=== PATIENT | male | born 1965 | race African-American/Black ===

== ENCOUNTER 2016-08-06 18:11 | Emergency (ER) | payer MEDICAID ==
[~2016-08-06] VITALS: Ht 172.7 cm; Wt 70.3 kg
[~2016-08-06 18:11] MED LIST: BACTRIM DS TAB1 EAC1 ORAL; BACTRIM-DS1 EA ORAL; BENADRYL25 MG ORAL; CIPRO500 MG PO; COLACE100 MG ORAL; FLAGYL250 MG ORAL; KEFLEX500 MG ORAL; METRONIDAZOLE500 MG ORAL; NITROFURANTOIN100 M2 ORAL; NKM; NORCO 10/3251 EA ORAL; NORCO 5-325 TA1 EACH ORAL; NORCO 5-325 TA1 EACH PO; PERCOCET 10-321 EAC1 PO; PYRIDIUM100 MG ORAL; SIMETHICONE80 MG ORAL; VICODIN 5-3001 EACH ORAL; VICODIN 5-5001 EACH PO
[2016-08-06] MEDS ORDERED: Ketorolac 30mg Inj IV ONE (19:00)
[2016-08-06] MEDS ORDERED: Morphine Sulfate 4mg/ml Inj IVP ONE (19:15)
[2016-08-06 19:16] LABS: BASOPHILS % (AUTO) 0.7 % (0.0-2.0); LYMPHOCYTES % (AUTO) 9.7 % (20.0-45.0); MEAN CORPUSCULAR HEMOGLOBIN 25.4 PG (27.0-31.0); MEAN CORPUSCULAR VOLUME 79 FL (80-99); MEAN PLATELET VOLUME 6.6 FL (6.5-10.1); MONOCYTES % (AUTO) 7.8 % (1.0-10.0); NEUTROPHILS % (AUTO) 81.8 % (45.0-75.0); PLATELET COUNT 210 K/UL (150-450); RED BLOOD COUNT 5.91 M/UL (4.70-6.10); RED CELL DISTRIBUTION WIDTH 20.2 % (11.6-14.8); WHITE BLOOD COUNT 10.1 K/UL (4.8-10.8)
[2016-08-06 19:19] VITALS: BP 128/87
--- NOTE | 2016-08-06 19:21 | Emergency Room Report ---
History of Present Illness General Chief Complaint: Abdominal Pain Source: Patient Present Illness HPI Patient is a 51-year-old male who presented after increased abdominal pain. Patient prior history of chronic pain as well as Crohn's disease. Patient prior history of a fistula as well as prior abdominal surgeries with the ileostomy. Patient reported having increased abdominal pain. The patient stated that he had been taking OxyContin. Patient denied any new skin lesions. He had been recently treated for a fungal infection to his of scrotal area. The patient has a fairly complicated medical history. Patient previously been seen at [facility] and had CT imaging done Allergies: Coded Allergies: RIVAROXABAN (Unverified Allergy, Unknown, 08/06/16) Patient History Past Medical History: see triage record Reviewed Nursing Documentation: PMH: Agreed, PSxH: Agreed Nursing Documentation-PMH Hx Hypertension: Yes Hx Asthma: Yes Hx Gastrointestinal Problems: Yes - GERD, DIVERTICULITIS, CROHN'S DISEASE Review of Systems All Other Systems: negative except mentioned in HPI Physical Exam Vital Signs Date Time Temp Pulse Resp B/P Pulse Ox O2 Delivery O2 Flow Rate FiO2 08/06/16 18:02 98.1 110 16 126/68 97 Room Air Sp02 EP Interpretation: reviewed, normal General Appearance: normal inspection, well appearing, no apparent distress, alert, GCS 15, non-toxic Head: atraumatic ENT: normal ENT inspection, hearing grossly normal, normal voice Neck: normal inspection, full range of motion, supple, no bony tend Respiratory: normal inspection, lungs clear, normal breath sounds, no respiratory distress, no retraction, no wheezing Cardiovascular #1: regular rate, rhythm, no edema Gastrointestinal: normal inspection, normal bowel sounds, non tender, soft, no guarding, no hernia Genitourinary: no CVA tenderness Musculoskeletal: normal inspection, back normal, normal range of motion Neurologic: normal inspection, alert, oriented x3, responsive, driver messenger III-XII nml as tested, motor strength/tone normal, speech normal Psychiatric: normal inspection, judgement/insight normal, mood/affect normal Skin: normal inspection, normal color, no rash Medical Decision Making Diagnostic Impression: Primary Impression: Urinary tract infection Additional Impressions: Chronic abdominal pain Colonic fistula ER Course Patient presented for abdominal pain. Differential diagnoses included ischemic bowel, appendicitis, perforated viscus, abdominal aortic aneurysm, inferior myocardial infarction, viral gastroenteritis Because of complexity of patient's case laboratory testing and imaging studies were ordered.the patient started on IV fluids.Patient was given antiemetics and steroids. The patient showed evidence of urinary tract infection and was started on IV antibiotics. The patient was given prescription for further antibiotics and pain medications. Patient was advised to followup with his own physicians for further refills of his pain medications. The patient was noted to have evidence of urinary tract infection was given prescription for antibiotics. Labs Test 08/06/16 18:58 White Blood Count 10.1 K/UL (4.8-10.8) Red Blood Count 5.91 M/UL (4.70-6.10) Hemoglobin 15.0 G/DL (14.2-18.0) Hematocrit 46.8 % (42.0-52.0) Mean Corpuscular Volume 79 FL (80-99) Mean Corpuscular Hemoglobin 25.4 PG (27.0-31.0) Mean Corpuscular Hemoglobin Concent 32.0 G/DL (32.0-36.0) Red Cell Distribution Width 20.2 % (11.6-14.8) Platelet Count 210 K/UL (150-450) Mean Platelet Volume 6.6 FL (6.5-10.1) Neutrophils (%) (Auto) 81.8 % (45.0-75.0) Lymphocytes (%) (Auto) 9.7 % (20.0-45.0) Monocytes (%) (Auto) 7.8 % (1.0-10.0) Eosinophils (%) (Auto) 0.0 % (0.0-3.0) Basophils (%) (Auto) 0.7 % (0.0-2.0) Erythrocyte Sedimentation Rate 2 MM/HR (0-15) Urine Color Yellow Urine Appearance Cloudy Urine pH 5 (4.5-8.0) Urine Specific [place] 1.020 (1.005-1.035) Urine Protein 1+ (NEGATIVE) Urine Glucose (UA) Negative (NEGATIVE) Urine Ketones Negative (NEGATIVE) Urine Occult Blood 5+ (NEGATIVE) Urine Nitrite Negative (NEGATIVE) Urine Bilirubin Negative (NEGATIVE) Urine Urobilinogen Normal MG/DL (0.0-1.0) Urine Leukocyte Esterase 3+ (NEGATIVE) Urine RBC 2-4 /HPF (0 - 0) Urine WBC Tntc /HPF (0 - 0) Urine Squamous Epithelial Cells Occasional /LPF Urine Bacteria Many /HPF (NONE) Sodium Level 136 mEQ/L (135-145) Potassium Level 4.1 mEQ/L (3.4-4.9) Chloride Level 95 mEQ/L (98-107) Carbon Dioxide Level 25 mEQ/L (20-30) Anion Gap 16 (5-15) Blood Urea Nitrogen 13 mg/dL (7-23) Creatinine 0.7 mg/dL (0.7-1.2) Estimat Glomerular Filtration Rate > 60 mL/min (>60) Glucose Level 152 mg/dL (74-106) Calcium Level 8.2 mg/dL (8.6-10.2) Total Bilirubin 0.3 mg/dL (0.0-1.2) Aspartate Amino Transf (AST/SGOT) 11 U/L (5-40) Alanine Aminotransferase (ALT/SGPT) 11 U/L (3-41) Alkaline Phosphatase 95 U/L (40-129) Troponin I < 0.30 ng/mL (<=0.30) Total Protein 5.6 g/dL (6.6-8.7) Albumin 2.6 g/dL (3.5-5.2) Globulin 3.0 g/dL Albumin/Globulin Ratio 0.8 (1.0-2.7) Lipase 14 U/L (< 60) Last Vital Signs Date Time Temp Pulse Resp B/P Pulse Ox O2 Delivery O2 Flow Rate FiO2 08/06/16 18:02 98.1 110 16 126/68 97 Room Air Status: improved Disposition: HOME, SELF-CARE Condition: Stable Scripts Cephalexin* (KEFLEX*) 500 Mg Capsule 500 MG ORAL Q6H, #28 CAP 0 Refills Prov: Miles Pfeiffer 08/06/16 Hydrocodone Bit/Acetaminophen 10-325* (NORCO 10-325*) 1 Each Tablet 1 TAB ORAL Q6H Y for For Pain, #10 TAB 0 Refills PRN PAIN Prov: Miles Pfeiffer 08/06/16 Referrals: NOT CHOSEN [facility]/,REFERRING (PCP) Miles Pfeiffer Aug 06, 2016 19:21
[2016-08-06 19:35] LABS: APPEARANCE,URINE CLOUDY; KETONES,URINE NEGATIVE (NEGATIVE); NITRITE,URINE NEGATIVE (NEGATIVE); PH,URINE 5 (4.5-8.0); PROTEIN,URINE 1+ (NEGATIVE); UROBILINOGEN,URINE NORMAL MG/DL (0.0-1.0)
[2016-08-06 19:36] LABS: LEUKOCYTE ESTERASE ,URINE 3+ (NEGATIVE)
[2016-08-06 19:45] LABS: TROPONIN I < 0.30 ng/mL (<=0.30)
[2016-08-06 19:49] LABS: ALANINE AMINOTRANSFERASE 11 U/L (3-41); ALBUMIN/GLOBULIN RATIO 0.8 (1.0-2.7); ANION GAP 16 (5-15); ASPARTATE AMINO TRANSFERASE 11 U/L (5-40); CALCIUM 8.2 mg/dL (8.6-10.2); CARBON DIOXIDE 25 mEQ/L (20-30); CHLORIDE 95 mEQ/L (98-107); CREATININE 0.7 mg/dL (0.7-1.2); GLOMERULAR FILTRATION RATE > 60 mL/min (>60); HEMOLYSIS 3; LIPASE 14 U/L (< 60); POTASSIUM 4.1 mEQ/L (3.4-4.9); SODIUM 136 mEQ/L (135-145); TOTAL PROTEIN 5.6 g/dL (6.6-8.7)
[2016-08-06 19:56] LABS: BACTERIA,URINE MANY /HPF; SQUAMOUS EPITHELIAL CELL,UR OCCASIONAL /LPF (NONE/OCC); WBC,URINE TNTC /HPF (0 - 0)
[2016-08-06] MEDS ORDERED: cefTRIAXone 1 GM in NS 55 ML IVPB ONE (20:00)
[2016-08-06] MEDS ORDERED: KEFLEX500 MG ORAL (20:17)
[2016-08-06] MEDS ORDERED: NORCO 10-325 T1 EACH ORAL (20:17)
[2016-08-06 20:44] VITALS: BP 109/79
--- NOTE | 2016-08-07 11:24 | Diagnostic Imaging Report ---
Clinical history: Abdominal pain. Technique: Single frontal abdominal radiograph was obtained. Comparisons: None Findings: Moderate retained stool is noted throughout the colon. Visualized bowel gas pattern is nonspecific, without evidence of obstruction. A retrievable type IVC filter is noted in the mid abdomen. IMPRESSION: Moderate retained colonic stool. Nonspecific, nonobstructive bowel gas pattern. Retrievable type IVC filter noted.
== END 2016-08-06 21:45 | disposition home or self-care (01) ==
LOC: EDBD 18:11 → EMR 19:11
DX: N39.0 Urinary tract infection, site not specified (principal); G89.29 Other chronic pain; K63.2 Fistula of intestine; I10 Essential (primary) hypertension; Z87.09 Personal history of other diseases of the respiratory system
CPT/HCPCS: 36415; 74020; 80053; 81003; 83690; 84484; 85025; 85651; 87086; 87181; 96361; 96374; 96375; 99284; J0696; J1885; J2270; J2405

== ENCOUNTER 2017-06-03 10:06 | Emergency (ER) | payer MEDICAID, OTHER ==
[~2017-06-03] VITALS: Ht 167.6 cm; Wt 72.6 kg
[~2017-06-03 10:06] MED LIST changes: +NORCO 10-325 T1 EACH ORAL
[2017-06-03] MEDS ORDERED: BUMEX1 MG ORAL (10:19)
[2017-06-03] MEDS ORDERED: TRAMADOL HCL100 M2 ORAL (10:19)
[2017-06-03] MEDS ORDERED: ZOFRAN4 M1 ORAL (10:19)
[2017-06-03] MEDS ORDERED: LIDOCAINE 4% (10:19)
[2017-06-03] MEDS ORDERED: DIPHENHYDRAMINE25 M1 ORAL (10:19)
[2017-06-03] MEDS ORDERED: LEXAPRO20 MG ORAL (10:19)
[2017-06-03] MEDS ORDERED: OXYCODONE HCL20 M1 ORAL (10:19)
[2017-06-03] MEDS ORDERED: MYTAB GAS80 MG PO (10:19)
[2017-06-03 10:22] VITALS: BP 126/84
[2017-06-03] MEDS ORDERED: LOPERAMIDE2 M1 PO (10:28)
[2017-06-03] MEDS ORDERED: HYOSCYAMINE0.125 M2 PO (10:28)
[2017-06-03] MEDS ORDERED: CREON DR 6,0001 EACH PO (10:28)
[2017-06-03] MEDS ORDERED: VITAMIN D22000 UNIT PO (10:28)
[2017-06-03] MEDS ORDERED: MELATONIN 1 MG1 EAC1 ORAL (10:28)
[2017-06-03] MEDS ORDERED: ELIQUIS5 MG PO (10:28)
[2017-06-03] MEDS ORDERED: METHADONE HCL10 MG PO (10:28)
[2017-06-03] MEDS ORDERED: FEROSUL325 M1 PO (10:28)
[2017-06-03] MEDS ORDERED: TRAZODONE HCL50 MG ORAL (10:28)
[2017-06-03] MEDS ORDERED: VENTOLIN HFA18 GM INH (10:28)
--- NOTE | 2017-06-03 10:41 | Emergency Room Report ---
History of Present Illness General Chief Complaint: Abdominal Pain Source: Patient, Medical Record, EMS Present Illness HPI 52-year-old male brought in by EMS with abdominal pain for 2-3 days Patient states this abdominal pain is consistent with his Crohn's "flareups". When asked what makes it a flareup patient states "severe abdominal pain", but does not provide additional modifying information. States also nauseous but denies vomiting. States normal stool in colostomy bag. States he takes oxycodone, and methadone at home for her "chronic pain" but states the pills just "come out in my back". He states he states that he supposed to have surgery next month to connect the ostomies. However he states every time he goes to [facility] he does transfer to another hospital because he doesn't have [facility] insurance. States he takes IV Dilaudid for pain. has a PICC line Allergies: Coded Allergies: RIVAROXABAN (Unverified Allergy, Unknown, 08/06/16) VEDOLIZUMAB (Verified Allergy, Unknown, 06/03/17) Uncoded Allergies: FISH (Allergy, Unknown, 06/03/17) Patient History Past Medical History: other - ?IBD Past Surgical History: none, other - see history of present illness Pertinent Family History: none Social History: Denies: smoking, alcohol use, drug use Immunizations: UTD Reviewed Nursing Documentation: PMH: Agreed, PSxH: Agreed Nursing Documentation-PMH Hx Hypertension: Yes Hx Asthma: Yes Hx Gastrointestinal Problems: Yes - Crohn's Disease, Chronic Renal Failure Review of Systems All Other Systems: negative except mentioned in HPI Physical Exam Vital Signs Date Time Temp Pulse Resp B/P (MAP) Pulse Ox O2 Delivery O2 Flow Rate FiO2 06/03/17 10:01 98.1 112 14 154/78 98 06/03/17 10:22 Room Air Sp02 EP Interpretation: reviewed, normal General Appearance: normal inspection, well appearing, no apparent distress, alert, GCS 15, non-toxic, other - writhing on stretcher Head: normocephalic, atraumatic Eyes: bilateral eye PERRL, bilateral eye EOMI ENT: normal ENT inspection, hearing grossly normal, normal voice Neck: normal inspection, full range of motion, supple, no bony tend Respiratory: normal inspection, lungs clear, normal breath sounds, no respiratory distress, no retraction, no wheezing Cardiovascular #1: regular rate, rhythm, no edema Gastrointestinal: normal inspection, normal bowel sounds, soft, no guarding, no hernia, other - Right-sided ileostomy bag with green clear liquid Genitourinary: no CVA tenderness Musculoskeletal: normal inspection, back normal, normal range of motion, Zayra' s Sign negative Neurologic: normal inspection, alert, oriented x3, responsive, army officer III-XII nml as tested, speech normal Psychiatric: normal inspection, judgement/insight normal, mood/affect normal Skin: normal inspection, normal color, no rash Medical Decision Making Diagnostic Impression: Primary Impression: Abdominal pain Additional Impression: Urinary tract infection Qualified Codes: N30.01 - Acute cystitis with hematuria ER Course Labs show leukocytosis 14,000 CT shows no acute change from known prior surgical instrumentation and procedures No SBO Bladder wall thickening noted UA consistent with UTI per urine culture and patient he has resistant UTI to oral antibiotics Review of past urine culture show susceptibility only to IV formula medications IV Zosyn given We'll need admission for a resistant UTI endorse to Dr. Hall for transfer to outside facility at 2:30 PM patient remained stable in ER Rhythm Strip Diag. Results EP Interpretation: yes Rate: 75 Rhythm: NSR, no PVC's, no ectopy Last Vital Signs Date Time Temp Pulse Resp B/P (MAP) Pulse Ox O2 Delivery O2 Flow Rate FiO2 06/03/17 10:22 98.5 86 18 126/84 100 Room Air Status: improved Disposition: ADMITTED INPATIENT Condition: Serious Referrals: [facility],REFERRING (PCP) JARVIS SOTO M.D. Jun 03, 2017 10:41
[2017-06-03] MEDS ORDERED: Morphine Sulfate 4mg/ml Inj IVP ONE ×2 (10:45→15:45)
[2017-06-03 11:18] LABS: BASOPHILS % (AUTO) 0.4 % (0.0-2.0); EOSINOPHILS % (AUTO) 0.5 % (0.0-3.0); LYMPHOCYTES % (AUTO) 11.5 % (20.0-45.0); MEAN CORPUSCULAR HEMOGLOBIN 27.2 PG (27.0-31.0); MEAN CORPUSCULAR HGB CONC 32.3 G/DL (32.0-36.0); MEAN CORPUSCULAR VOLUME 84 FL (80-99); NEUTROPHILS % (AUTO) 80.6 % (45.0-75.0); PLATELET COUNT 332 K/UL (150-450); RED BLOOD COUNT 4.73 M/UL (4.70-6.10); RED CELL DISTRIBUTION WIDTH 15.3 % (11.6-14.8); WHITE BLOOD COUNT 14.6 K/UL (4.8-10.8)
[2017-06-03 11:31] LABS: ANION GAP 12 mmol/L (5-15); CALCIUM 9.1 MG/DL (8.5-10.1); CARBON DIOXIDE 24 MMOL/L (21-32); CHLORIDE 102 MMOL/L (98-107); CREATININE 1.5 MG/DL (0.55-1.30); GLOMERULAR FILTRATION RATE 59.8 mL/min (>60); SODIUM 138 MMOL/L (136-145)
[2017-06-03 11:38] LABS: ALANINE AMINOTRANSFERASE 41 U/L (12-78); ALBUMIN/GLOBULIN RATIO 0.6 (1.0-2.7); ASPARTATE AMINO TRANSFERASE 27 U/L (15-37); LIPASE 147 U/L (73-393); TOTAL PROTEIN 8.3 G/DL (6.4-8.2)
[2017-06-03 11:54] LABS: APPEARANCE,URINE SLIGHTLY CLOUDY; KETONES,URINE 1+ (NEGATIVE); LEUKOCYTE ESTERASE ,URINE 3+ (NEGATIVE); NITRITE,URINE NEGATIVE (NEGATIVE); PH,URINE 9 (4.5-8.0); PROTEIN,URINE 3+ (NEGATIVE); UROBILINOGEN,URINE NORMAL MG/DL (0.0-1.0)
[2017-06-03 12:01] LABS: REFLEX LACTIC ACID YES OR NO YES
[2017-06-03 12:06] LABS: BACTERIA,URINE FEW /HPF; SQUAMOUS EPITHELIAL CELL,UR OCCASIONAL /LPF (NONE/OCC); WBC,URINE 60-80 /HPF (0 - 0)
[2017-06-03] MEDS ORDERED: Piperacillin/Tazobactam 3.375 GM in NS 55 ML IVPB ONE (12:15)
[2017-06-03] MEDS ORDERED: LR 1000ml 1,000 ML IV SCH (12:15)
[2017-06-03] MEDS ORDERED: Zosyn 3.375gm inj ONE (12:32)
[2017-06-03] MEDS ORDERED: HYDROmorphone 1mg/ml Carpuject IVP ONE (13:15)
[2017-06-03 15:29] VITALS: BP 120/78
--- NOTE | 2017-06-04 09:59 | Diagnostic Imaging Report ---
Indication: Abdominal pain Technique: Continuous helical transaxial imaging of the abdomen and pelvis was obtained from the lung bases to the pubic symphysis. No intravenous contrast was administered. Coronal 2-D reformats were also obtained. Automatic Exposure Control was utilized. Total Dose length Product (DLP): [address] Dose Index Volume (CTDIvol): 0.15, 11.76 mGy Comparison: 06/29/15 Findings: Limited exam due to non-administration of oral contrast and intravenous contrast. The patient is had interval colectomy. There is ileostomy in the right. There is a colostomy on the left. Surgical clips noted and IVC filter has been placed. No evidence of abdominal abscess, free fluid or free air. No evidence of bowel obstruction. Again the urinary bladder wall is moderately thick. There is no hydronephrosis. Gallbladder is distended and grossly unremarkable. Impression: Status post abdominal surgery nature which is not known. Partial colon resection and small bowel resection. Colostomy and ileostomy noted. Thickening of the urinary bladder wall consistent with cystitis. This is unchanged in appearance. IVC filter [[facility] has communicated the preliminary results to the Emergency Department. Their findings are largely concordant with this report. The CT scanner at [facility] is accredited by the [employer] and the scans are performed using dose optimization techniques as appropriate to a performed exam including Automatic Exposure control.
== END 2017-06-03 15:29 | disposition other institution (70) ==
LOC: EDBD 10:06 → EMR 10:25 → EDBEDREQ 13:43 → EMR 15:29
DX: N39.0 Urinary tract infection, site not specified (principal); I10 Essential (primary) hypertension; J45.909 Unspecified asthma, uncomplicated; Z88.8 Allergy status to other drugs, medicaments and biological substances; Z91.018 Allergy to other foods
CPT/HCPCS: 36415; 74176; 80053; 81003; 83605; 83690; 85025; 87086; 99285; J1170; J2270; J2405; J2543